=== PATIENT | male | born 1955 | race Caucasian/White ===

== ENCOUNTER 2018-06-10 12:05 | Day surgery (SDC) | payer BC, SELFPAY ==
[2018-06-10 12:40] VITALS: BP 144/78; PULSE 69; RESP 14; TEMP 36.6; O2SAT 99
[2018-06-10 12:42] VITALS: BMI 25.7
[2018-06-10] MEDS: SODIUM CHLORIDE 0.9% 1,000 ML 42 ML IV (12:52)
--- NOTE | 2018-06-10 13:09 | PM.HP.1 ---
History of Present Illness Date Patient Seen: 06/10/18 Time Patient Seen: 13:09 Chief complaint: [id number] Narrative: Screening colonoscopy at a 10 year interval Patient History Family & Social History Social History: household members spouse Meds Allergies Allergy/AdvReac Type Severity Reaction Status Date / Time No Known Drug Allergies Allergy Verified 06/10/18 12:41 Exam Vital Signs (past 8 hours): - 06/10/18 12:40 Temperature 97.8 F Pulse Rate 69 Respiratory Rate 14 Blood Pressure 144/78 H Pulse Oximetry 99 Oxygen Delivery Method Room Air Narrative Exam Narrative: Oropharynx free of lesions Chest clear to auscultation and percussion Cardiac exam reveals no S3 or murmur Assessment & Plan Plan: Assessment/Plan Narrative: Need for follow-up screening 10 year colonoscopy. No symptoms. Risks benefits alternatives have been explained.
--- NOTE | 2018-06-10 13:12 | P.HP_ITS ---
History of Present Illness Date Patient Seen: 06/10/18 Time Patient Seen: 13:09 Chief complaint: [id number] Narrative: Screening colonoscopy at a 10 year interval Patient History Family & Social History Social History: household members spouse Meds Allergies Allergy/AdvReac Type Severity Reaction Status Date / Time No Known Drug Allergies Allergy Verified 06/10/18 12:41 Exam Vital Signs (past 8 hours): - 06/10/18 12:40 Temperature 97.8 F Pulse Rate 69 Respiratory Rate 14 Blood Pressure 144/78 H Pulse Oximetry 99 Oxygen Delivery Method Room Air Narrative Exam Narrative: Oropharynx free of lesions Chest clear to auscultation and percussion Cardiac exam reveals no S3 or murmur Assessment & Plan Plan: Assessment/Plan Narrative: Need for follow-up screening 10 year colonoscopy. No symptoms. Risks benefits alternatives have been explained.
--- NOTE | 2018-06-10 13:12 | PM.OP.ENDO ---
Operative Date/Time/Diagnoses Date of procedure: 06/10/18 Time of procedure: 13:12 Pre-op diagnosis: See indication and findings Procedure & Clinicians Study performed: Colonoscopy Same procedure as scheduled: Yes Indications: Screening at a 10 year interval Surgeon: Petty Beth Procedure Notes Procedure in detail: After informed consent was obtained the patient was placed in the left lateral decubitus position. The video colonoscope was introduced in the rectum slowly advanced to the cecum. On slow withdrawal mucosa was carefully examined. Preparation was good. Scope was removed patient tolerated the procedure well. Blood loss none Complications none Sedation Versed 9 mg fentanyl 100 mcg IV titration Total sedation time 23 min Findings 1. Scattered diverticulosis 2. Otherwise negative colonoscopy the IC valve. Cecum was seen but somewhat incompletely Mauricio should have follow-up colonoscopy in 10 years. Versed
[2018-06-10] MEDS: fentaNYL 250 MCG/5 ML INJ IV (14:00)
[2018-06-10] MEDS: MIDAZOLAM 5 MG/5 ML VIAL IV (14:01)
[2018-06-10 14:05] VITALS: BP 134/82; PULSE 69; RESP 11; TEMP 36.9; O2SAT 99
[2018-06-10 14:13] VITALS: BP 133/79; PULSE 68; RESP 10; O2SAT 99
[2018-06-10 14:15] VITALS: BP 127/81; PULSE 69; RESP 20; O2SAT 98
[2018-06-10 14:23] VITALS: BP 147/88; PULSE 77; RESP 17; TEMP 36.6; O2SAT 97
[2018-06-10 14:37] VITALS: BP 149/88; PULSE 75; RESP 16; TEMP 36.6; O2SAT 97
== END 2018-06-10 14:55 ==
PROVIDERS: PCP Internal Medicine; Visit Provider Internal Medicine Gastroenterology
PROC: 0DJD8ZZ Inspection of Lower Intestinal Tract, Via Natural or Artificial Opening Endoscopic (ICD-10-PCS; CPT 45378; principal; 2018-06-10 13:30)
DX: Z12.11 Encounter for screening for malignant neoplasm of colon (principal); K57.30 Diverticulosis of large intestine without perforation or abscess without bleeding
CPT/HCPCS: 45378; J2250; J3010

== ENCOUNTER → 2023-08-29 06:55 | Outpatient (CLI) | payer MEDICARE, BC, SELFPAY ==
[2023-08-29 08:33] LABS: Alanine Aminotransferase 23 IU/L (<50); Albumin 4.2 g/dL (3.5-5.0); Albumin Globulin Ratio 1.6 (1.0-2.8); Alkaline Phosphatase 60 U/L (38-126); Aspartate Aminotransferase 25 IU/L (17-59); BUN Creatinine Ratio 23.4 (6-22); Bilirubin Total 0.7 mg/dL (0.2-1.3); Blood Urea Nitrogen 18 mg/dL (9-20); Calcium 9.1 mg/dL (8.4-10.2); Carbon Dioxide 27 mmol/L (22-32); Chloride 105 mmol/L (98-107); Cholesterol 172 mg/dL (140-199); Estimated Glomerular Filt Rate > 60 mL/min (>60); Globulin 2.7 g/dL (1.7-4.1); Glucose 113 mg/dL (80-110); HDL Cholesterol 58 mg/dL (40-60); HEMOLYSIS < 15 (0-50); LDL Cholesterol Calculated 97 mg/dL (<100); Potassium 4.1 mmol/L (3.4-5.1); Sodium 139 mmol/L (137-145); Total Protein 6.9 g/dL (6.3-8.2); Triglycerides 87 mg/dL (35-150)
== END ==
PROVIDERS: PCP Family Medicine; Referring Provider Family Medicine; Visit Provider Family Medicine
DX: Z00.00 Encounter for general adult medical examination without abnormal findings (principal); Z13.220 Encounter for screening for lipoid disorders; M06.9 Rheumatoid arthritis, unspecified; Z13.1 Encounter for screening for diabetes mellitus
CPT/HCPCS: 36415; 80053; 80061

== ENCOUNTER 2024-08-08 14:40 | Emergency (ER) | payer MEDICARE, BC, SELFPAY ==
[2024-08-08 14:43] VITALS: BP 167/91; PULSE 71; RESP 16; TEMP 36.6; O2SAT 99; BMI 25.8
--- NOTE | 2024-08-08 15:05 | PC.NURSE ---
Patient told registration that they'll see their PCM.
== END 2024-08-08 15:03 | disposition left against medical advice (07) ==
LOC: ED 15:10
PROVIDERS: Emergency Provider Emergency Medicine; PCP Family Medicine
CPT/HCPCS: 99281

== ENCOUNTER → 2024-08-12 10:31 | Outpatient (CLI) | payer MEDICARE, BC, SELFPAY ==
[2024-08-12 11:48] LABS: TSH w/ Reflex to FT4 0.68 uIU/mL (0.47-4.68)
== END ==
LOC: LAB 10:33
PROVIDERS: PCP Family Medicine; Referring Provider Nurse Practitioner Family; Visit Provider Nurse Practitioner Family
DX: I10 Essential (primary) hypertension (principal)
CPT/HCPCS: 36415; 84443

== ENCOUNTER → 2024-09-01 06:54 | Outpatient (CLI) | payer MEDICARE, BC, SELFPAY ==
[2024-09-01 08:04] LABS: Add Manual Diff / Slide Review NO; Basophils Absolute Auto 100 /uL (0-100); Eosinophils Absolute Auto 100 /uL (0-450); Hemoglobin 15.5 g/dL (13.5-17.5); Lymphocytes Absolute Auto 1400 /uL (1100-4500); Lymphocytes Percent Auto 21.1 % (25-40); Mean Corpuscular HGB Conc 35.4 % (30-36); Mean Corpuscular Hemoglobin 32.7 PG (26-34); Mean Corpuscular Volume 92.4 fL (80-100); Monocytes Absolute Auto 500 /uL (0-900); Monocytes Percent Auto 8.3 % (3-14); Neutrophils Absolute Auto 4400 /uL (1500-7000); Neutrophils Percent Auto 68.6 % (50-75); Platelet Count 317 X10^3/uL (150-400); Red Blood Cell Count 4.76 X10^6/uL (4.5-5.9); Red Cell Distribution Width 13.9 % (11.6-14.8); White Blood Cell Count 6.5 X10^3/uL (4.5-11.0)
[2024-09-01 08:22] LABS: Alanine Aminotransferase 27 IU/L (<50); Albumin 4.3 g/dL (3.5-5.0); Alkaline Phosphatase 67 U/L (38-126); Aspartate Aminotransferase 25 IU/L (17-59); Bilirubin Total 0.5 mg/dL (0.2-1.3); Blood Urea Nitrogen 18 mg/dL (9-20); Calcium 9.8 mg/dL (8.4-10.2); Carbon Dioxide 26 mmol/L (22-32); Chloride 104 mmol/L (98-107); Cholesterol 175 mg/dL (140-199); Estimated Glomerular Filt Rate > 60 mL/min (>60); Globulin 2.2 g/dL (1.7-4.1); Glucose 109 mg/dL (80-110); HDL Cholesterol 59 mg/dL (40-60); HEMOLYSIS < 15 (0-50); LDL Cholesterol Calculated 104 mg/dL (<100); Potassium 4.6 mmol/L (3.4-5.1); Sodium 138 mmol/L (137-145); Total Protein 6.5 g/dL (6.3-8.2); Triglycerides 58 mg/dL (35-150)
[2024-09-03 07:58] LABS: Hemoglobin A1C% w Est Avg Glu 5.5 % (4.0-6.0)
== END ==
PROVIDERS: Nurse Practitioner Family; PCP Family Medicine; Referring Provider Family Medicine; Visit Provider Family Medicine
DX: Z00.00 Encounter for general adult medical examination without abnormal findings (principal); M06.1 Adult-onset Still's disease; M06.9 Rheumatoid arthritis, unspecified; Z13.1 Encounter for screening for diabetes mellitus; Z13.220 Encounter for screening for lipoid disorders; I10 Essential (primary) hypertension; E16.2 Hypoglycemia, unspecified
CPT/HCPCS: 36415; 80053; 80061; 83036; 85025